=== PATIENT | male | born 1935 | race Caucasian/White ===

== ENCOUNTER 2016-12-07 16:56 | Emergency (ER) | payer MEDICARE, OTHER ==
[2016-12-07] MEDS ORDERED: MORPHINE SULFATE 10 MG/ML INJ IV ONE (19:25)
[2016-12-07] MEDS ORDERED: MORPHINE SULFATE 10 MG/ML INJ IV PRN (20:15)
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
[2016-12-07] MEDS ORDERED: HYDROCODONE/ACETAMINOPHEN 5-325 MG 6 TAB/DSPK PO PRN (20:38)
[2016-12-07 22:17] VITALS: BP 139/59
== END 2016-12-07 22:45 | disposition home or self-care (01) ==
LOC: ER 16:56
PROC: 0HQ1XZZ Repair Face Skin, External Approach (ICD-10-PCS; principal; 2016-12-07)
DX: S05.8X2A Other injuries of left eye and orbit, initial encounter (principal); S00.12XA Contusion of left eyelid and periocular area, initial encounter; S01.81XA Laceration without foreign body of other part of head, initial encounter; H11.32 Conjunctival hemorrhage, left eye; G30.9 Alzheimer's disease, unspecified; F02.80 Dementia in other diseases classified elsewhere, unspecified severity, without behavioral disturbance, psychotic disturbance, mood disturbance, and anxiety; Z87.891 Personal history of nicotine dependence; W19.XXXA Unspecified fall, initial encounter
CPT/HCPCS: 99285; 96374; 73110; 70450; 72125; 12011; J2270; A9270